=== PATIENT | female | born 1990 | race Caucasian/White ===

== ENCOUNTER 2017-10-31 16:14 | Emergency (ER) | payer MEDICAID, OTHER ==
[~2017-10-31] VITALS: Ht 162.6 cm; Wt 43.1 kg
[2017-10-31 16:59] LABS: BILIRUBIN,URINE NEGATIVE (NEGATIVE); CLARITY,URINE SLIGHTLY CLOUDY; COLOR,URINE YELLOW; GLUCOSE, URINE (UA) NEGATIVE (NEGATIVE); KETONES,URINE 2+ (NEGATIVE); LEUKOCYTE ESTERASE ,URINE NEGATIVE (NEGATIVE); NITRITE,URINE NEGATIVE (NEGATIVE); PH,URINE 6 (5-9); PROTEIN,URINE NEGATIVE (NEGATIVE); UROBILINOGEN,URINE NORMAL (NORMAL)
[2017-10-31 17:06] LABS: BACTERIA,URINE NEGATIVE /HPF; SQUAMOUS EPITHELIAL CELL,UR 0-2 /HPF; WBC,URINE 0-2 /HPF
[2017-10-31 17:17] LABS: BASOPHILS % (AUTO) 1 % (0-10); EOSINOPHILS % (AUTO) 1 % (0-10); HEMATOCRIT 35 % (35-52); HEMOGLOBIN 11.9 G/DL (11.5-16.0); LYMPHOCYTES # (AUTO) 1.6 X 10^3 (1.0-4.0); LYMPHOCYTES % (AUTO) 22 % (12-44); MEAN CORPUSCULAR HEMOGLOBIN 29 PG (25-34); MEAN CORPUSCULAR HGB CONC 35 G/DL (32-36); MEAN CORPUSCULAR VOLUME 83 FL (80-99); MEAN PLATELET VOLUME 10.5 FL (7.4-10.4); MONOCYTES # (AUTO) 0.5 X 10^3 (0.0-1.0); MONOCYTES % (AUTO) 7 % (0-12); NEUTROPHILS # (AUTO) 5.1 X 10^3 (1.8-7.8); NEUTROPHILS % (AUTO) 69 % (42-75); PLATELET COUNT 235 10^3/uL (130-400); RED BLOOD COUNT 4.14 10^6/uL (4.35-5.85); RED CELL DISTRIBUTION WIDTH 13.2 % (10.0-14.5); WHITE BLOOD COUNT 7.3 10^3/uL (4.3-11.0)
[2017-10-31 17:33] LABS: ALANINE AMINOTRANSFERASE 12 U/L (0-55); ALBUMIN 4.6 GM/DL (3.2-4.5); ALKALINE PHOSPHATASE 40 U/L (40-136); BILIRUBIN,TOTAL 0.5 MG/DL (0.1-1.0); BUN/CREATININE RATIO 15; CALCIUM 9.5 MG/DL (8.5-10.1); CARBON DIOXIDE 24 MMOL/L (21-32); CHLORIDE 105 MMOL/L (98-107); CREATININE SERUM 0.66 MG/DL (0.60-1.30); GFR ESTIMATED > 60; GLUCOSE 96 MG/DL (70-105); POTASSIUM 3.6 MMOL/L (3.6-5.0); SODIUM 138 MMOL/L (135-145); TOTAL PROTEIN 7.8 GM/DL (6.4-8.2)
--- NOTE | 2017-10-31 17:53 | ED GU-Female ---
General Chief Complaint: -Female Stated Complaint: 9 WKS PREG/POSS MISCARRIAGE Nursing Triage Note: PT AMBULATED TO RM 9 W/O DIFFICULTIES. PT STATES SHE IS 9 WEEKS AND HAS BEEN HAVE BLEEDING SINCE THURSDAY. PT STATES LMP WAS 08/26. PT DENIES ANY TISSUE OR CLOTTING PRESENT IN BLOOD. PT STATES MILD CRAMPING. Nursing Sepsis Screen: No Definite Risk Source: patient Exam Limitations: no limitations History of Present Illness Date Seen by Provider: Oct 31, 2017 Time Seen by Provider: 16:20 Initial Comments Here with report of vaginal spotting over the last few days. Last menstrual period was 08/26/17. States that she took 5 tests at home which showed that she was . She has not established care yet. Denies significant pain or vaginal discharge otherwise. States that she has had some occasional cramping and has had increased bowel movements. Timing/Duration: changing over time, other (few days) Severity/Quality: cramping Location: suprapubic Radiation: suprapubic Activities at Onset: none Sexual [place] History: less than 2 months ago, single partner Modifying Factors: Worsens With Coughing Associated Symptoms: abdominal pain; No fever/chills, No nausea/vomiting, No urinary frequency Allergies and Home Medications Allergies Coded Allergies: No Known Drug Allergies (Unverified , 10/31/17) Patient Home Medication List Home Medication List Reviewed: Yes Review of Systems Constitutional: see HPI Respiratory: no symptoms reported Cardiovascular: no symptoms reported Gastrointestinal: No abdominal pain; nausea; No vomiting Genitourinary: no symptoms reported : Yes LMP: Aug 26, 2017 Musculoskeletal: no symptoms reported Skin: no symptoms reported All Other Systemes Reviewed Negative Unless Noted: Yes Past Tirpjnn-Hbqtzk-Jsxvio Hx Past Med/Social Hx: Reviewed and Corrections made Patient Social History Alcohol Use: Denies Use Recreational Drug Use: No Smoking Status: Never a Smoker Recent Foreign Travel: No Contact w/Someone Who Travel: No Recent Infectious Disease Expo: No Past Medical History Surgeries: Yes Orthopedic, Tonsillectomy Respiratory: No Cardiac: No Neurological: No : Yes (POSITIVE BEDSIDE UPREG) Last Menstrual Period: Aug 26, 2017 Gastrointestinal: No Musculoskeletal: No Psychosocial: No Family Medical History Reviewed and Corrections made No Pertinent Family Hx Physical Exam Vital Signs Vital Signs - First Documented 10/31/17 16:20 Temp 98.0 Pulse 100 Resp 18 B/P (MAP) 122/82 (95) O2 Delivery Room Air Capillary Refill : Less Than 3 Seconds General Appearance: WD/WN, no apparent distress Neck: full range of motion, supple Cardiovascular: regular rate, rhythm, no murmur Respiratory: lungs clear, normal breath sounds Gastrointestinal: non tender, soft Back: normal inspection, no CVA tenderness, no vertebral tenderness Extremities: non-tender, normal inspection Neurologic/Psychiatric: alert, oriented x 3 Skin: normal color, warm/dry Progress/Results/Core Measures Suspected Sepsis Recent Fever Within 48 Hours: No Infection Criteria Present: None New/Unexplained Altered Menta: No Sepsis Screen: No Definite Risk SIRS Temperature:98.0 Pulse: 100 Respiratory Rate: 18 Laboratory Tests 10/31/17 17:08: White Blood Count 7.3 Blood Pressure 122 /82 Mean: 95 Laboratory Tests 10/31/17 17:08: Creatinine 0.66, Platelet Count 235, Total Bilirubin 0.5 Results/Orders Lab Results Laboratory Tests Test 10/31/17 16:44 10/31/17 17:08 Range/Units Urine Color YELLOW Urine Clarity SLIGHTLY CLOUDY Urine pH 6 5-9 Urine Specific [place] 1.025 H 1.016-1.022 Urine Protein NEGATIVE NEGATIVE Urine Glucose (UA) NEGATIVE NEGATIVE Urine Ketones 2+ H NEGATIVE Urine Nitrite NEGATIVE NEGATIVE Urine Bilirubin NEGATIVE NEGATIVE Urine Urobilinogen NORMAL NORMAL MG/DL Urine Leukocyte Esterase NEGATIVE NEGATIVE Urine RBC (Auto) 5+ H NEGATIVE Urine RBC NONE /HPF Urine WBC 0-2 /HPF Urine Squamous Epithelial Cells 0-2 /HPF Urine Crystals NONE /LPF Urine Bacteria NEGATIVE /HPF Urine Casts NONE /LPF Urine Mucus SMALL H /LPF Urine Culture Indicated NO White Blood Count 7.3 4.3-11.0 10^3/uL Red Blood Count 4.14 L 4.35-5.85 10^6/uL Hemoglobin 11.9 11.5-16.0 G/DL Hematocrit 35 35-52 % Mean Corpuscular Volume 83 80-99 FL Mean Corpuscular Hemoglobin 29 25-34 PG Mean Corpuscular Hemoglobin Concent 35 32-36 G/DL Red Cell Distribution Width 13.2 10.0-14.5 % Platelet Count 235 130-400 10^3/uL Mean Platelet Volume 10.5 H 7.4-10.4 FL Neutrophils (%) (Auto) 69 42-75 % Lymphocytes (%) (Auto) 22 12-44 % Monocytes (%) (Auto) 7 0-12 % Eosinophils (%) (Auto) 1 0-10 % Basophils (%) (Auto) 1 0-10 % Neutrophils # (Auto) 5.1 1.8-7.8 X 10^3 Lymphocytes # (Auto) 1.6 1.0-4.0 X 10^3 Monocytes # (Auto) 0.5 0.0-1.0 X 10^3 Eosinophils # (Auto) 0.0 0.0-0.3 10^3/uL Basophils # (Auto) 0.0 0.0-0.1 10^3/uL Sodium Level 138 135-145 MMOL/L Potassium Level 3.6 3.6-5.0 MMOL/L Chloride Level 105 98-107 MMOL/L Carbon Dioxide Level 24 21-32 MMOL/L Anion Gap 9 5-14 MMOL/L Blood Urea Nitrogen 10 7-18 MG/DL Creatinine 0.66 0.60-1.30 MG/DL Estimat Glomerular Filtration Rate > 60 BUN/Creatinine Ratio 15 Glucose Level 96 70-105 MG/DL Calcium Level 9.5 8.5-10.1 MG/DL Total Bilirubin 0.5 0.1-1.0 MG/DL Aspartate Amino Transf (AST/SGOT) 14 5-34 U/L Alanine Aminotransferase (ALT/SGPT) 12 0-55 U/L Alkaline Phosphatase 40 40-136 U/L Total Protein 7.8 6.4-8.2 GM/DL Albumin 4.6 H 3.2-4.5 GM/DL My Orders Orders - SASCHA ORTIZ MD Cbc With Automated Diff (10/31/17 16:41) Hcg,Quantitative (10/31/17 16:41) Us Ob Single Fetus<14 [id number] (10/31/17 16:41) Comprehensive Metabolic Panel (10/31/17 16:41) Vital Signs/I&O 10/31/17 16:20 Temp 98.0 Pulse 100 Resp 18 B/P (MAP) 122/82 (95) O2 Delivery Room Air Capillary Refill : Less Than 3 Seconds Blood Pressure Mean: 95 Point of Care Testing Urine -Bedside: Positive Progress Note : Progress Note Seen and evaluated. Bedside ultrasound by me was difficult transabdominal. Formal ultrasound ordered. UA ordered. UCG is positive. Labs and hCG Quant done. 1800 Formal ultrasound complete. There is a sac of approximately 6 weeks noted. Quantitative value would indicate that she should be much further along and this would be concerning for threatened miscarriage. No concerns currently for ectopic. Discharged home with return precautions. Patient verbalize understanding instructions and agreement with plan. Departure Impression Primary Impression: Threatened in first trimester Disposition: 01 HOME, SELF-CARE Condition: Stable Departure-Patient Inst. Decision time for Depature: 18:18 Referrals: RACHEL DAMON MD NO,LOCAL PHYSICIAN (PCP) Primary Care Physician Patient Instructions: Threatened Miscarriage (DC) Add. Discharge Instructions: All discharge instructions reviewed with patient and/or family. Voiced understanding. Call the [facility], Dr. Damon, Thursday morning for repeat hCG quantitative level. Your hCG quantitative level today was 57730. They will compare your level this week. Return for worse pain, fever, vomiting, weakness , breathing problems or other concerns as needed. You should return for vaginal bleeding greater than 2 large pads per hour for more than 2 hours or other concerns as needed. You may take Tylenol/acetaminophen 1000 mg every 8 hours as needed for pain. Drink plenty of fluids. Copy Copies To 1: RACHEL DAMON MD, TIMOTHY D MD Oct 31, 2017 17:52
--- NOTE | 2017-10-31 18:15 | Diagnostic Imaging Report ---
INDICATION: Possible . Pelvic bleeding. COMPARISON: None. TECHNIQUE: Transpelvic and transvaginal sonogram was performed. FINDINGS: There is an intrauterine gestational sac which appears to contain a yolk sac and possible pole. pole measures approximately 3 mm in length. This is consistent with 6 week gestation. No heart tones could be identified. Note is made of incomplete fusion of the chorion and amnion. No adnexal masses or free fluid are seen. Right ovary cannot be adequately identified. Left ovary has a normal appearance and measures 1.6 x 2.9 cm. CLINICAL DATES: 9 weeks and 3 days with estimated date of delivery of 06/02/2018. IMPRESSION: Intrauterine gestational sac is identified with yolk sac and probable pole. No heart tones can be demonstrated, but this may be related to early gestation. Note is made, however, of discrepancy between clinical and ultrasound dates. Continued followup with serial Beta-hCGs is recommended. If indicated, short interval sonographic followup could be performed. Dictated by: Dictated on workstation # [id number]
[2017-10-31 18:31] VITALS: BP 122/82
== END 2017-10-31 18:32 | disposition home or self-care (01) ==
LOC: ER 16:17
DX: O20.0 Threatened abortion (principal); Z90.89 Acquired absence of other organs; Z3A.09 9 weeks gestation of pregnancy
CPT/HCPCS: 36415; 76801; 76817; 80053; 81000; 84702; 84703; 85025

== ENCOUNTER 2017-11-03 09:36 | Observation (INO) | payer MEDICAID ==
[~2017-11-03] VITALS: Ht 162.6 cm; Wt 47.2 kg
[2017-11-03] MEDS ORDERED: NS IV 1000 ML 1,000 ML IV ONE ×2 (10:10→14:59)
[2017-11-03 10:30] LABS: HEMOGLOBIN 10.9 G/DL (11.5-16.0); MEAN PLATELET VOLUME 10.4 FL (7.4-10.4); RED BLOOD COUNT 3.76 10^6/uL (4.35-5.85); RED CELL DISTRIBUTION WIDTH 13.3 % (10.0-14.5); WHITE BLOOD COUNT 13.8 10^3/uL (4.3-11.0)
[2017-11-03 10:56] LABS: BUN/CREATININE RATIO 17; CARBON DIOXIDE 20 MMOL/L (21-32); CHLORIDE 107 MMOL/L (98-107); CREATININE SERUM 0.63 MG/DL (0.60-1.30); GFR ESTIMATED > 60; GLUCOSE 142 MG/DL (70-105); POTASSIUM 3.6 MMOL/L (3.6-5.0); SODIUM 135 MMOL/L (135-145)
--- NOTE | 2017-11-03 12:17 | Diagnostic Imaging Report ---
Indication: Vaginal bleeding. Comparison: Correlation is made with recent OB ultrasound from 10/31/2017. Technique: US OB transvaginal. Findings: The endometrium is thickened and heterogeneous. Previously noted gestational sac is no longer present. Endometrium is 16 mm in thickness. No internal vascularity is present. The ovaries are unremarkable. No adnexal mass or free fluid is seen. Impression: Heterogeneous, thickened endometrium without evidence of previously seen gestational sac. Findings are consistent with spontaneous with endometrial blood products present. No other significant abnormality is seen. Dictated by: Dictated on workstation # [id number]
--- NOTE | 2017-11-03 12:57 | ED GU-Female ---
General Chief Complaint: -Female Stated Complaint: POSS MISCARRIAGE Nursing Triage Note: PT BROUGHT TO ED BY MOTHER. PT AMBULATED TO RM 6 W/O DIFFICULTIES. PT STATES SHE BELIEVES SHE IS HAVING A MISCARRAIGE. PT STATES SHE IS 9 WEEKS . PT STATES SHE STARTED HAVING CRAMPING ABOUT 0400 AND STARTED PASSING CLOTS AROUND 0430. PT STATES SHE IS FILLING A PAD EVERY 45 MINS. PT ALSO STATES SHE FEELS LIKE SHE IS GOING TO PASS OUT EVERY TIME SHE PASSES A CLOT. PT SAW DR LIPSCOMB YESTERDAY. PT CALLED DEISI'S OFFICE THIS MORNING AND WAS TOLD TO COME TO ED. Nursing Sepsis Screen: No Definite Risk Source: patient, old records Exam Limitations: no limitations History of Present Illness Date Seen by Provider: Nov 03, 2017 Time Seen by Provider: 09:48 Initial Comments This 27-year-old presents to the emergency room with vaginal bleeding and incomplete miscarriage. She was seen on October 31 for threatened miscarriage. She had a lower than expected hCG at that time. She was seen in follow-up by Dr. Lipscomb. In the interim she has developed heavy bleeding passing numerous large clots soaking through numerous pads. She has become lightheaded and short of breath. She has had 2 lower herself to the floor multiple times to avoid syncope. She is mildly tachycardic on assessment. Allergies and Home Medications Allergies Coded Allergies: No Known Drug Allergies (Unverified , 10/31/17) Home Medications Ibuprofen 600 Mg Tablet, 600 MG PO Q6HR Prescribed by: JESSICA GONZALEZ on 11/03/17 1917 Patient Home Medication List Home Medication List Reviewed: Yes Review of Systems Constitutional: no symptoms reported EENTM: no symptoms reported Respiratory: see HPI Cardiovascular: see HPI Gastrointestinal: no symptoms reported Genitourinary: see HPI : Yes Musculoskeletal: no symptoms reported Skin: no symptoms reported Psychiatric/Neurological: No Symptoms Reported Endocrine: No Symptoms Reported Hematologic/Lymphatic: See HPI Past Veayyfv-Vikamv-Fevxus Hx Patient Social History Alcohol Use: Denies Use Recreational Drug Use: No 2nd Hand Smoke Exposure: No Recent Foreign Travel: No Contact w/Someone Who Travel: No Recent Infectious Disease Expo: No Seasonal Allergies Seasonal Allergies: No Past Medical History Surgeries: Yes Orthopedic, Tonsillectomy Respiratory: No Cardiac: No Neurological: No : Yes Genitourinary: No Gastrointestinal: No Musculoskeletal: No Endocrine: No HEENT: No Cancer: No Psychosocial: No Integumentary: No Blood Disorders: No Adverse Reaction/Blood Tranf: No Family Medical History No Pertinent Family Hx Physical Exam Vital Signs Vital Signs - First Documented 11/03/17 11/03/17 09:41 16:34 Temp 97.2 Pulse 105 Resp 22 B/P (MAP) 115/73 (87) Pulse Ox 100 O2 Delivery Room Air Capillary Refill : Less Than 3 Seconds General Appearance: WD/WN, mild distress HEENT: PERRL/EOMI, normal ENT inspection Neck: normal inspection Cardiovascular: no edema, no murmur, tachycardia Respiratory: lungs clear, normal breath sounds, no respiratory distress, no accessory muscle use Gastrointestinal: normal bowel sounds, soft, tenderness (suprapubic region) Extremities: normal inspection, no pedal edema Neurologic/Psychiatric: 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, no motor/sensory deficits, alert, oriented x 3, other (anxious) Skin: normal color, warm/dry Progress/Results/Core Measures Suspected Sepsis Recent Fever Within 48 Hours: No Infection Criteria Present: None New/Unexplained Altered Menta: No Sepsis Screen: No Definite Risk SIRS Temperature:97.2 Pulse: 105 Respiratory Rate: 22 Laboratory Tests 11/03/17 10:14: White Blood Count 13.8H Blood Pressure 115 /73 Mean: 87 Laboratory Tests 11/03/17 10:14: Creatinine 0.63, Platelet Count 249 Results/Orders Lab Results Laboratory Tests Test 11/03/17 10:14 11/03/17 15:33 11/03/17 19:33 Range/Units White Blood Count 13.8 H 4.3-11.0 10^3/uL Red Blood Count 3.76 L 4.35-5.85 10^6/uL Hemoglobin 10.9 L 8.9 L 8.3 L 11.5-16.0 G/DL Hematocrit 32 L 27 L 25 L 35-52 % Mean Corpuscular Volume 85 80-99 FL Mean Corpuscular Hemoglobin 29 25-34 PG Mean Corpuscular Hemoglobin Concent 34 32-36 G/DL Red Cell Distribution Width 13.3 10.0-14.5 % Platelet Count 249 130-400 10^3/uL Mean Platelet Volume 10.4 7.4-10.4 FL Sodium Level 135 135-145 MMOL/L Potassium Level 3.6 3.6-5.0 MMOL/L Chloride Level 107 98-107 MMOL/L Carbon Dioxide Level 20 L 21-32 MMOL/L Anion Gap 8 5-14 MMOL/L Blood Urea Nitrogen 11 7-18 MG/DL Creatinine 0.63 0.60-1.30 MG/DL Estimat Glomerular Filtration Rate > 60 BUN/Creatinine Ratio 17 Glucose Level 142 H 70-105 MG/DL Calcium Level 9.0 8.5-10.1 MG/DL Human Chorionic Gonadotropin, Quant H <5 MIU/ML My Orders Orders - AMOS FELTON MD Hcg,Quantitative (11/03/17 09:48) Cbc No Diff (11/03/17 09:50) Saline Lock/Iv-Start (11/03/17 10:10) Ns Iv 1000 Ml (Sodium Chloride 0.9%) (11/03/17 10:10) Basic Metabolic Panel (11/03/17 10:10) Us Ob Transvaginal [id number] (11/03/17 10:10) Fentanyl Injection (Sublimaze Injection (11/03/17 13:30) Ns Iv 1000 Ml (Sodium Chloride 0.9%) (11/03/17 14:59) Red Cells Leukocytes Reduced (11/03/17 14:59) Type And Screen (11/03/17 10:14) Ns Iv 1000 Ml (Sodium Chloride 0.9%) (11/03/17 14:57) Hemoglobin And Hematocrit (11/03/17 15:03) Ketorolac Injection (Toradol Injection) (11/03/17 15:45) Medications Given in ED Vital Signs/I&O Capillary Refill : Less Than 3 Seconds Blood Pressure Mean: 87 Progress Note #1: Time: 12:56 Progress Note Patient has soaked 2 pads and past 3 large clot so far in the emergency room. The lightheadedness and shortness of breath resolved with a liter of IV fluids. Case was reviewed with Dr. Gonzalez and Dr. Lipscomb. Plan is to give Cytotec 800 g rectally and monitor her condition over the next 1-2 hours. If bleeding persists, D&C may be necessary. Dr. Gonzalez will be provided with an update. Progress Note #2: Time: 15:04 Progress Note Patient received Cytotec 800 g by rectal route. At her request she received fentanyl 50 g concurrently to help with anticipated increased cramping. Patient does have increased cramping. She passed one small clot about the size of a walnut. She is now shivering considerably which she states is normal for her when she is anxious. She seems to be hyperventilating in association with this. She also is hypertensive at this time with systolic blood pressure of 66. Dr. Gonzalez has been updated. We will try to correct her blood pressure and move her to women's services. 2 units of red blood cells were ordered for crossmatch. Tympanic temperature was 97.4. Progress Note #3: Progress Note Patient was admitted for further observation and treatment. Hypotension resolved with additional IV fluids. Patient's anxiety improved. Repeat H&H showed a 2 g drop in hemoglobin. Diagnostic Imaging Diagonstic Imaging: Ultrasound Plain Films/CT/US/NM/MRI: pelvis Comments NAME: [facility] REC#: [id number] PT STATUS: ADM IN : 1990 PHYSICIAN: AMOS FELTON MD ADMIT DATE: 11/03/17/LD Signed Date of Exam: 11/03/17 US OB TRANSVAGINAL [id number] Indication: Vaginal bleeding. Comparison: Correlation is made with recent OB ultrasound from 10/31/2017. Technique: US OB transvaginal. Findings: The endometrium is thickened and heterogeneous. Previously noted gestational sac is no longer present. Endometrium is 16 mm in thickness. No internal vascularity is present. The ovaries are unremarkable. No adnexal mass or free fluid is seen. Impression: Heterogeneous, thickened endometrium without evidence of previously seen gestational sac. Findings are consistent with spontaneous with endometrial blood products present. No other significant abnormality is seen. Dictated by: Dictated on workstation # [id number] Dict: 11/03/17 1208 Trans: 11/03/171923 Interpreted by: ISAK GAUTHIER MD Electronically signed by: ISAK GAUTHIER MD 11/03/171923 Departure Impression Primary Impression: Vaginal hemorrhage Additional Impressions: Anxiety Acute blood loss anemia Hypotension Qualified Codes: I95.9 - Hypotension, unspecified Complete miscarriage Disposition: ADMITTED INPATIENT Condition: Stable Admissions Decision to Admit Reason: Admit from ER (General) Decision to Admit/Date: Nov 04, 2017 Time/Decision to Admit Time: 15:05 Departure-Patient Inst. Referrals: SELFCARY MD (PCP/Family) Primary Care Physician Scripts Ibuprofen (Ibu) 600 Mg Tablet 600 MG PO Q6HR, #30 TAB Prov: JESSICA GONZALEZ DO 11/03/17 AMOS FELTON MD Nov 03, 2017 12:57
[2017-11-03] MEDS ORDERED: MISOPROSTOL 200 MCG (CYTOTEC) TABLET PR ONE ×2 (13:00)
[2017-11-03] MEDS ORDERED: fentaNYL INJECTION 100 MCG/2 ML AMP IVP ONE (13:30)
[2017-11-03] MEDS ORDERED: NS IV 1000 ML 1,000 ML ONE (14:57)
[2017-11-03 15:42] LABS: HEMOGLOBIN 8.9 G/DL (11.5-16.0)
[2017-11-03] MEDS ORDERED: KETOROLAC 30 MG/ML VIAL IVP ONE (15:45)
--- NOTE | 2017-11-03 17:06 | History & Physical-OB/GYN ---
History of Present Illness History of Present Illness Reason for visit/HPI miscarriage, vaginal hemorrhage Date of Admission Nov 03, 2017 at 15:46 Date Seen by Provider: Nov 03, 2017 Time Seen by Provider: 16:50 I consulted on this patient on 11/03/17 1650 Attending Physician Flori Gonzalez DO Admitting Physician Oswaldo Gutierrez MD Consult This is a 27 year old approximately 9 weeks . She presented to the ED with complaint of Miscarriage. Reports LMP 9 weeks ago. Has been having cramping and passing clots since about 4 am. She has near syncope with passing the clot She is filling a pad every 45 minutes[address] She had [address] Dr[address] Damon yesterday and therefore called Neslon's office this morning and was told to come to the ED. She was seen on October 31 for threatened miscarriage. She had a lower than expected hCG at that time. She was seen in follow-up by Dr. Damon. In the interim she has developed heavy bleeding passing numerous large clots soaking through numerous pads. She has become lightheaded and short of breath. She has had 2 lower herself to the floor multiple times to avoid syncope. She is mildly tachycardic on assessment. While in the ED she soaked several pads and has passed several large clots. She received a liter of fluid. She was given Cytotec 800 mcg rectally. She did well but was more hypotensive and tachycardic and was admitted for evaluation.She had a 2 gram drop in hemoglobin in a short period of time. She will be admitted for evaluation and IV fluids with consideration of blood transfusion. Allergies and Home Medications Allergies Coded Allergies: No Known Drug Allergies (Unverified , 10/31/17) Home Medications Ibuprofen 600 Mg Tablet, 600 MG PO Q6HR Prescribed by: FLORI GONZALEZ on 11/03/17 234 Patient Home Medication List Home Medication List Reviewed: Yes Past Bqvqrfq-Vuiafj-Recbbp Hx Patient Social History Marrital Status: Alcohol Use: Denies Use Recreational Drug Use: No 2nd Hand Smoke Exposure: No Recent Foreign Travel: No Contact w/other who traveled: No Recent Infectious Disease Expo: No Seasonal Allergies Seasonal Allergies: No Surgeries Yes Orthopedic, Tonsillectomy Respiratory No Cardiovascular No Neurological No Reproductive System : Yes Genitourinary No Gastrointestinal No Musculoskeletal No Endocrine History of Endocrine Disorders: No HEENT History of HEENT Disorders: No Cancer No Psychosocial History of Psychiatric Problem: No Integumentary History of Skin or Integumenta: No Blood Transfusions History of Blood Disorders: No Adverse Reaction to a Blood Tr: No Family Medical History Significant Family History: No Pertinent Family Hx Constitutional: dizziness, weakness Physical Exam Physical Exam Vital Signs Capillary Refill : Less Than 3 Seconds Labs General Appearance: No Apparent Distress, WD/WN Respiratory: Lungs Clear, Normal Breath Sounds Assessment/Plan Assessment and Plan Completed AB Acute blood loss anemia Admit for observation and consider transfusion. However, bleeding has slowed with misoprostol. Toradol IV for cramping. Admission Diagnosis Admission Status: Observation FLORI GONZALEZ DO Nov 03, 2017 5:06 pm
[2017-11-03 17:10] VITALS: BP 92/54
[2017-11-03] MEDS ORDERED: HYDROcodone/APAP 5 MG/325 MG (LORTAB) TAB PO PRN (17:15)
[2017-11-03] MEDS ORDERED: IBUPROFEN 600 MG (MOTRIN) TAB PO SCH (18:00)
[2017-11-03 18:06] VITALS: BP 93/61
[2017-11-03] MEDS ORDERED: IBUP-844 PO (19:17)
--- NOTE | 2017-11-03 19:19 | Discharge Inst-Women's Service ---
Discharge Inst-Women's Serv Depart Medication/Instructions New, Converted or Re-Newed RX: Call to Patients Pharmacy Instructions expect light bleeding and cramping for up to tow weeks. Make appointment to see me in 2 weeks have have beta HCG drawn. [phone] Final Diagnosis vaginal hemorrhage completed miscarriage acute blood loss anemia Consults/Follow Up Additional Follow Up: Yes ([address] Gonzalez) Activity Activity: Activity as Tolerated Driving Instructions: You May Drive NO SMOKING: NO SMOKING Nothing Inside Vagina: No Douching, No [place], No Tampons Diet Discharge Diet: No Restrictions Symptoms to Report to : Bleeding Excessive (soaking greater than 1 pad per hour), Pain Increased, Fever Over 101 Degrees F, Vaginal Bleeding Increase, Lightheadedness, Vaginal Discharge Foul, Dizziness/Fainting JESSICA GONZALEZ DO Nov 03, 2017 19:19
[2017-11-03 19:25] VITALS: BP 87/57
[2017-11-03 20:15] LABS: HEMOGLOBIN 8.3 G/DL (11.5-16.0)
--- NOTE | 2017-11-04 09:47 | Physician Query-Final Dx ---
CORAZON GOODRICH 11/04/17 0947: Final Diagnosis Give Final Diagnosis Please give Final Diagnosis JESSICA GONZALEZ DO 11/27/17 1315: Final Diagnosis Give Final Diagnosis completed miscarriage vaginal hemorrhage acute blood loss anemia CORAZON GOODRICH Nov 04, 2017 09:47 JESSICA GONZALEZ DO November 27, 2017 13:15
== END 2017-11-03 20:44 | disposition home or self-care (01) ==
LOC: EDUNIT# 09:36 → ER 09:38 → LDRP 15:46 → UNDOADMIN 15:46 → LDRP 16:45 → UNDODISIN 21:15
PROVIDERS: ADMIT Obstetrics & Gynecology; ATTEND Obstetrics & Gynecology
DX: O03.9 Complete or unspecified spontaneous abortion without complication (principal); F41.9 Anxiety disorder, unspecified; D62 Acute posthemorrhagic anemia; I95.9 Hypotension, unspecified
CPT/HCPCS: 36415; 76817; 80048; 84702; 85014; 85018; 85027; 86850; 86900; 86901; 86920; 88305; 96361; 96374; G0378